=== PATIENT | female | born 1955 ===

== ENCOUNTER 2024-06-25 12:59 | Emergency (ER) | payer MEDICARE ==
[~2024-06-25] VITALS: Ht 162.6 cm; Wt 74.8 kg
[2024-06-25 15:14] LABS: CORONAVIRUS COVID-19 AG Negative (NEGATIVE); INFLUENZA A AG Negative (NEGATIVE); INFLUENZA B AG Negative (NEGATIVE)
== END 2024-06-25 15:38 | disposition left against medical advice (07) ==
LOC: ER 12:59
PROVIDERS: Emergency Medicine
DX: B34.9 Viral infection, unspecified (principal); F17.290 Nicotine dependence, other tobacco product, uncomplicated; Z88.0 Allergy status to penicillin
CPT/HCPCS: 71045; 87428-QW; 99282-25